=== PATIENT | male | born 1970 | race American Indian/Alaskan Native ===

== ENCOUNTER 2016-12-31 00:23 | Emergency (ER) | payer OTHER ==
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
[2016-12-31] MEDS ORDERED: FLEXERIL PO ONE (03:38)
[2016-12-31] MEDS ORDERED: TORADOL IM ONE (03:38)
[2016-12-31 03:51] VITALS: BP 152/89
== END 2016-12-31 04:25 | disposition home or self-care (01) ==
LOC: ED 00:23
DX: S13.4XXA Sprain of ligaments of cervical spine, initial encounter (principal); V43.52XA Car driver injured in collision with other type car in traffic accident, initial encounter; Y93.89 Activity, other specified; Y99.8 Other external cause status; Y92.89 Other specified places as the place of occurrence of the external cause
CPT/HCPCS: 96372; 99283; J1885

== ENCOUNTER 2017-02-27 17:12 | Emergency (ER) | payer OTHER ==
[2017-02-27 18:11] LABS: Hematocrit 41.4 % (35.5-45.6); Hemoglobin 14.2 gm/dl (11.8-15.2); Mean Corpuscular HGB Conc 34 % (32-34); Mean Corpuscular Hemoglobin 30 pg (28-32); Mean Corpuscular Volume 87 fl (84-94); Platelet Count 167 K/mm3 (140-440); Red Blood Count 4.74 M/mm3 (3.65-5.03); Red Cell Distribution Width 14.2 % (13.2-15.2); White Blood Count 5.5 K/mm3 (4.5-11.0)
--- NOTE | 2017-02-27 18:17 | XRay Report ---
FINAL REPORT EXAM: XR CHEST ROUTINE 2V HISTORY: CP PATIENT IS ASKING TO SEE IF HE HAS A PINCHED NERVE IN HIS BACK. TECHNIQUE: PA and lateral chest radiographs PRIORS: None. FINDINGS: No focal consolidations are seen in the lungs and there are no pleural effusions.The cardiomediastinal silhouette is within normal limits for size and contour. No acute osseous abnormality is identified. IMPRESSION: 1. No definite radiographic evidence of acute cardiopulmonary disease.
[2017-02-27 18:32] LABS: Alanine Aminotransferase 22 units/L (7-56); Albumin 4.6 g/dL (3.9-5); Albumin/Globulin Ratio 1.8 %; Alkaline Phosphatase 58 units/L (35-129); Anion Gap 18 mmol/L; Blood Urea Nitrogen 11 mg/dL (9-20); Calcium 9.2 mg/dL (8.4-10.2); Carbon Dioxide 26 mmol/L (22-30); Chloride 99.8 mmol/L (98-107); Glucose 100 mg/dL (75-100); Sodium 140 mmol/L (137-145); Total Protein 7.1 g/dL (6.3-8.2)
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
--- NOTE | 2017-02-27 21:51 | Cat Scan Report ---
FINAL REPORT EXAM: CT HEAD/BRAIN WO CON HISTORY: weakness, numbness TECHNIQUE: Noncontrast serial axial images from skull base to vertex. PRIORS: None. FINDINGS: There is no mass effect or midline shift. There are no abnormal intra or extra-axial fluid collections. Cortical sulci and lateral ventricles are within normal limits for size and configuration. Basilar cisterns are patent. No acute intracranial hemorrhage is identified. Foci of relative hypodensity are seen in the white matter of the cerebral hemispheres. Mucosal thickening is seen in one of the ethmoidal air cells on the left side. Mastoid air cells are well aerated. No acute osseous abnormality is identified. IMPRESSION: 1. No abnormal mass or acute intracranial hemorrhage is identified. 2. Areas of relative hypodensity are seen in the white matter of the cerebral hemispheres. This is a nonspecific finding. It may be related to chronic ischemic change from small vessel disease.
--- NOTE | 2017-02-27 21:53 | Cat Scan Report ---
FINAL REPORT EXAM: CT CERVICAL SPINE WO CON HISTORY: weakness, numbness TECHNIQUE: Noncontrast serial axial images through the cervical spine with coronal and sagittal reconstruction. PRIORS: None. FINDINGS: No gross abnormality is seen in the visualized portion of the brain. Mastoid air cells are well aerated. Prevertebral soft tissues appear within normal limits. Visualized portion of the lung apices are clear. No acute fracture or anterolisthesis is identified. Mild spondylosis is noted at C3-4, C4-5, C5-6 and C6-7. IMPRESSION: 1. No acute fracture or anterolisthesis is identified. 2. Mild degenerative changes are noted. 3. Contents of the spinal canal are incompletely evaluated in this study. The patient can be further assessed with MRI if indicated.
[2017-02-27] MEDS ORDERED: FLEXERIL PO ONE (22:06)
[2017-02-27 22:08] LABS: Bacteria,Urine 1+ /HPF (Negative); Bilirubin,Urine NEG (Negative); Blood,Urine NEG (Negative); Ketones,Urine NEG (Negative); Leukocyte Esterase,Urine NEG (Negative); Mucus,Urine FEW /HPF; Nitrite,Urine NEG (Negative); Protein,Urine <15 mg/dL mg/dL (Negative); Urobilinogen,Urine < 2.0 mg/dL (<2.0)
[2017-02-27 22:25] VITALS: BP 154/88
== END 2017-02-27 22:25 | disposition home or self-care (01) ==
LOC: ED 17:12
DX: R20.0 Anesthesia of skin (principal); R53.1 Weakness; I10 Essential (primary) hypertension; F17.200 Nicotine dependence, unspecified, uncomplicated
CPT/HCPCS: 36415; 70450; 71020; 72125; 80053; 81001; 84443; 85027; 93005; 93010

== ENCOUNTER 2021-01-26 20:42 | Emergency (ER) | payer OTHER, SELFPAY ==
[2021-01-26 21:59] VITALS: BP 131/73
--- NOTE | 2021-01-27 00:04 | Emergency Department Report ---
ED General Adult HPI - General Chief complaint: Fever Stated complaint: FLU SYMPTOMS PUI?: Yes Source: patient Mode of arrival: Ambulatory Limitations: No Limitations - History of Present Illness Initial comments: The patient was evaluated in the emergency department for symptoms described in the history of present illness. He/she was evaluated in the context of the global COVID-19 pandemic, which necessitated consideration that the patient might be at risk for infection with the virus that causes COVID-19. Institutional protocols and algorithms that pertain to the evaluation of patients at risk for COVID-19 are in a state of rapid change based on information released by regulatory bodies including the CDC and federal and state organizations. These policies and algorithms were followed during the patient's care in the emergency department. Please note that these policies, procedures and recommendations changed on a rapid basis. 50-year-old -[place] male presents to the emergency room complaining of not feeling well. He states he has flulike symptoms. He complains of nausea weakness vomiting able to hold down fluids though. Loss of taste and smell. Unvaccinated. Has not done a Covid test. Denies any past medical history denies any surgeries currently takes no medications on a daily basis and does have a primary care provider Dr. Christina Pierre. Onset/Timin -: week(s) Severity scale (0 -10): 3 Consistency: constant Improves with: none Worsens with: none Associated Symptoms: cough, loss of appetite, malaise, nausea/vomiting. denies: fever/chills, shortness of breath Treatments Prior to Arrival: none - Related Data Previous Rx's Medication Instructions Recorded Last Taken Type Ibuprofen [Motrin 600 MG tab] 600 mg PO Q8H PRN #20 tablet 12/31/16 Unknown Rx Cyclobenzaprine [Flexeril 10 MG 10 mg PO TID PRN #10 tablet 02/27/17 Unknown Rx TAB] Azithromycin [Zithromax Z-MIGUEL] 0 mg PO DAILY #6 tab 01/27/21 Unknown Rx Prednisone [predniSONE 10 mg 10 mg PO .TAPER #1 tab.ds.pk 01/27/21 Unknown Rx (6-Day Pack, 21 Tabs)] Allergies Allergy/AdvReac Type Severity Reaction Status Date / Time No Known Allergies Allergy Unverified 12/31/16 00:41 ED Review of Systems ROS: Stated complaint: FLU SYMPTOMS Other details as noted in HPI Comment: All other systems reviewed and negative ED Past Medical Hx - Past Medical History Previous Medical History?: No - Surgical History Past Surgical History?: No - Social History Smoking Status: Current Every Day Smoker Substance Use Type: None - Medications Home Medications: Home Medications Medication Instructions Recorded Confirmed Last Taken Type Ibuprofen [Motrin 600 MG tab] 600 mg PO Q8H PRN #20 tablet 12/31/16 Unknown Rx Cyclobenzaprine [Flexeril 10 MG 10 mg PO TID PRN #10 tablet 02/27/17 Unknown Rx TAB] Azithromycin [Zithromax Z-MIGUEL] 0 mg PO DAILY #6 tab 01/27/21 Unknown Rx Prednisone [predniSONE 10 mg 10 mg PO .TAPER #1 tab.ds.pk 01/27/21 Unknown Rx (6-Day Pack, 21 Tabs)] ED Physical Exam - General Limitations: No Limitations General appearance: alert, in no apparent distress - Head Head exam: Present: atraumatic, normocephalic - Eye Eye exam: Present: normal appearance - ENT ENT exam: Present: mucous membranes moist - Neck Neck exam: Present: normal inspection - Respiratory Respiratory exam: Present: normal lung sounds bilaterally. Absent: respiratory distress - Cardiovascular Cardiovascular Exam: Present: regular rate, normal rhythm. Absent: systolic murmur, diastolic murmur, rubs, gallop - GI/Abdominal GI/Abdominal exam: Present: soft, normal bowel sounds - Rectal Rectal exam: Present: deferred - Extremities Exam Extremities exam: Present: normal inspection - Back Exam Back exam: Present: normal inspection - Neurological Exam Neurological exam: Present: alert, oriented X3 - Psychiatric Psychiatric exam: Present: normal affect, normal mood - Skin Skin exam: Present: warm, dry, intact, normal color. Absent: rash ED Course Vital Signs 01/26/21 21:57 Temperature 98.8 F Pulse Rate 79 Respiratory 16 Rate Blood Pressure 131/73 O2 Sat by Pulse 94 Oximetry ED Medical Decision Making - Radiology Data Radiology results: report reviewed Study Comments [facility] [address] [place] [address] XRay Report Signed Patient: MAAME MELENDEZ MR#: [id number] : 09/04/1991 Acct:[id number] Age/Sex: 29 / F ADM Date: 01/26/21 Loc: ED Attending Dr: Ordering Physician: Machelle Piña MD Date of Service: 01/26/21 Procedure(s): XR chest 1V ap Accession Number(s): [id number] cc: Machelle Piña MD Fluoro Time In Minutes: CHEST 1 VIEW INDICATION / CLINICAL INFORMATION: álvaro. Dyspnea FINDINGS: SUPPORT DEVICES: None. HEART / MEDIASTINUM: No significant abnormality. LUNGS / PLEURA: No significant pulmonary or pleural abnormality. No pneumothorax. ADDITIONAL FINDINGS: No significant additional findings. IMPRESSION: 1. No acute findings. Signer Name: Roberto Bolanos MD Signed: 01/27/2021 12:37 AM Workstation Name: [id number] Transcribed By: BC Dictated By: Roberto Bolanos MD Electronically Authenticated By: Roberto Bolanos MD Signed Date/Time: 01/27/2136 DD/ TD/TT: - Medical Decision Making 50-year-old -[place] male presents to the emergency room complaining of not feeling well. He states he has flulike symptoms. He complains of nausea weakness vomiting able to hold down fluids though. Loss of taste and smell. Unvaccinated. Has not done a Covid test. Denies any past medical history denies any surgeries currently takes no medications on a daily basis and does have a primary care provider Dr. Christina Pierre. Chest x-ray has been ordered. Patient's vital signs are stable. Chest x-ray shows bilateral lower lobe pneumonia which is consistent with Covid. Patient has stable vital signs pulse ox is 95% on room air is afebrile. Patient will be discharged home on prednisone azithromycin increase fluids ibuprofen or Tylenol as needed for pain. Patient is instructed return back if symptoms get worse. Patient is encouraged to get Covid vaccination and Covid testing Critical care attestation.: If time is entered above; I have spent that time in minutes in the direct care of this critically ill patient, excluding procedure time. ED Disposition Clinical Impression: Suspected 2019 novel coronavirus infection Bilateral pneumonia Qualifiers: Pneumonia type: due to unspecified organism Lung location: unspecified part of lung Qualified Code(s): J18.9 - Pneumonia, unspecified organism Disposition: HOME / SELF CARE / HOMELESS Is pt being admited?: No Does the pt Need Aspirin: No Condition: Stable Instructions: Bacterial Pneumonia (ED), COVID-19: How to Protect Yourself and Others - CDC, COVID-19 Frequently Asked Questions, Prevent the Spread of COVID- 19 if You Are Sick - [facility] Additional Instructions: Chest x-ray is consistent with Covid pneumonia. Complete antibiotics for possible bacterial pneumonia that can happen. Prednisone as prescribed. Increase your fluid intake encouraged Covid testing. Your symptoms appear most consistent with a nonspecific viral syndrome. However, given this current pandemic, COVID-19 is in the differential of possibilities. , I do recommend outpatient Covid 19 testing. In the meantime, isolate/quarantine yourself and stay away from anyone who is elderly, immunocompromised or chronically ill. You can use ibuprofen every 6-8 hours and Tylenol every 4-8 hours, using the dosing on the back of the bottle, as needed for any fever or body aches. Return to the emergency department with any worsening of your symptoms, development of chest pain or shortness of breath, or with any acute distress. Prescriptions: Prednisone [predniSONE 10 mg (6-Day Pack, 21 Tabs)] 10 mg PO .TAPER #1 tab.ds.pk Azithromycin [Zithromax Z-MIGUEL] 0 mg PO DAILY #6 tab Referrals: [facility] [Provider Group] - 3-5 Days Time of Disposition: 01:08
--- NOTE | 2021-01-27 00:42 | XRay Report ---
CHEST 1 VIEW INDICATION / CLINICAL INFORMATION: Cough. FINDINGS: SUPPORT DEVICES: None. HEART / MEDIASTINUM: No significant abnormality. LUNGS / PLEURA: Prominent bilateral lower lobe airspace pneumonia. Signer Name: Roberto Bolanos MD Signed: 01/27/2021 12:38 AM Workstation Name: [id number]
== END 2021-01-27 01:16 | disposition home or self-care (01) ==
LOC: ED 20:42
DX: J18.9 Pneumonia, unspecified organism (principal); Z20.822 Contact with and (suspected) exposure to COVID-19; F17.200 Nicotine dependence, unspecified, uncomplicated; Z79.899 Other long term (current) drug therapy
CPT/HCPCS: 71045; 99283